=== PATIENT | female | born 1980 | race Caucasian/White ===

== ENCOUNTER 2016-11-06 10:36 | Emergency (ER) | payer OTHER ==
[~2016-11-06] VITALS: Ht 160 cm; Wt 76.7 kg
[2016-11-06 10:43] VITALS: TEMP 36.8; Ht 160 cm; Wt 76.7 kg
[2016-11-06] MEDS ORDERED: PRLSR20 PO (10:56)
[2016-11-06] MEDS ORDERED: ALUMINUM/MAGNESIUM SUSP 30 ML UDC PO STA (11:32)
[2016-11-06] MEDS ORDERED: OPTIRAY 320 IV PRN (11:45)
[2016-11-06 11:50] LABS: BASO % 0.2 %; BASO ABS # 0.01 K/uL (0-0.2); COMPLETE YES; EOS % 1.1 %; HEMATOCRIT 42.4 % (37-47); IG% 0.2 %; LYMPH % 23.9 %; LYMPH ABS # 1.28 K/uL (1.2-3.4); MEAN CELL VOLUME 91.8 fL (80-100); MEAN CORPUSCULAR HEMOGLOBIN 31.6 pg (25-34); MEAN CORPUSCULAR HGB CONC 34.4 g/dl (32-36); MEAN PLATELET VOLUME 11.5 fL (7.4-10.4); MONO % 6.5 %; NEUT % 68.1 %; PLATELET COUNT 194 K/uL (130-400); RED BLOOD COUNT 4.62 M/uL (4.2-5.4); WHITE BLOOD COUNT 5.36 K/uL (4.8-10.8)
[2016-11-06 11:52] LABS: URINE APPEARANCE CLEAR (CLEAR); URINE BILIRUBIN NEG (NEG); URINE COLOR YELLOW; URINE NITRITE NEG (NEG); URINE SPECIFIC GRAVITY 1.009 (1.000-1.030); UROBILINOGEN NEG (NEG)
[2016-11-06 11:56] LABS: MANUAL MICROSCOPIC REQUIRED? NO; REVIEW REQ? NO
[2016-11-06 11:58] LABS: INR 1.1 (0.9-1.1); PROTHROMBIN TIME (PATIENT) 11.4 SECONDS (9.0-12.0)
--- NOTE | 2016-11-06 12:11 | DIAGNOSTIC IMAGING REPORT ---
PA CHEST WITH ABDOMINAL SERIES CLINICAL HISTORY: Generalized abdominal pain. Dizziness. Dyspnea. FINDINGS: A PA chest radiograph is obtained. No prior studies are available for comparison at the time of dictation. The cardiomediastinal silhouette is unremarkable. There are low lung volumes with mild bibasilar atelectasis. The lungs and pleural spaces are otherwise clear. No pneumothorax is seen. The bony thorax is grossly intact. Supine and erect abdominal radiographs are obtained. No prior studies are available for comparison at the time of dictation. Cholecystectomy clips are seen in the right upper quadrant. There is a nonobstructed abdominal bowel gas pattern. Mild colonic fecal retention is observed. No evidence of intraperitoneal free air is seen. There are no abnormal abdominal calcifications. The lumbosacral spine and bony pelvis appear intact. IMPRESSION: 1. No active disease in the chest. 2. Unremarkable abdominal radiographs. Electronically signed by: Cale Peres M.D. 11/06/2016 12:09 PM Dictated Date/Time: 11/06/2016 12:08 PM
[2016-11-06 12:13] LABS: ALT/SGPT 42 U/L (12-78); BLOOD UREA NITROGEN 4 mg/dl (7-18); BUN/CREATININE RATIO 4.9 (10-20); CALCIUM 9.4 mg/dl (8.5-10.1); CARBON DIOXIDE 28 mmol/L (21-32); CHLORIDE 109 mmol/L (98-107); CREATININE 0.74 mg/dl (0.60-1.20); GLUCOSE 84 mg/dl (70-99); POTASSIUM 3.1 mmol/L (3.5-5.1); SODIUM 143 mmol/L (136-145)
[2016-11-06 12:18] LABS: ALKALINE PHOSPHATASE 71 U/L (45-117); AST/SGOT 24 U/L (15-37); PREG INTERNAL NEGATIVE QC NEG CLEAR BACKGROUND; PREG INTERNAL POSITIVE QC POS CONTROL LINE
--- NOTE | 2016-11-06 13:11 | DIAGNOSTIC IMAGING REPORT ---
CT neck with intravenous contrast HISTORY: pain in the back of throat TECHNIQUE: Multiaxial CT images of the neck were performed following the use of intravenous contrast. COMPARISON STUDY: None. FINDINGS: The visualized brain parenchyma and orbits are unremarkable. The major mucosal airway surfaces are intact. Mild mucosal thickening within the floor of the left max a sinus. No fluid levels within the paranasal sinuses. Prevertebral soft tissues and the epiglottis are normal in thickness. No fractures within the visualized osseous structures. A 3 mm hypodense nodule within the left thyroid lobe. No cervical lymphadenopathy. No masses or abscess identified within the neck. The major salivary glands are symmetric. IMPRESSION: No significant abnormality within the neck. Electronically signed by: Juarez Lopez M.D. 11/06/2016 1:10 PM Dictated Date/Time: 11/06/2016 1:05 PM
[2016-11-06] MEDS ORDERED: RANI150T3 PO (13:44)
[2016-11-06] MEDS ORDERED: OMEP20CA59 PO (13:44)
[2016-11-06 13:54] VITALS: BP 119/78; PULSE 65; O2SAT 98
--- NOTE | 2016-11-06 17:16 | EMERGENCY ROOM VISIT NOTE ---
History Report prepared by Beto: Sandra Kamara Under the Supervision of: Dr. Terry Latham D.O. First contact with patient: 11:23 Chief Complaint: OTHER COMPLAINT Stated Complaint: LUMP IN THROAT AT TIMES, SOB, DIZZY History of Present Illness The patient is a 35 year old female who presents to the Emergency Room with complaints of a worsening lump in her throat that started about a month ago. The patient reports that she was sick with ingestion at the beginning of the month and thought that the lump was going to pass on its own. She reports that the lump feels towards the top and feels like it is hard to swallow. She reports that sometimes that she can't seem to catch her breath. The patient states that she came to the ED because she was struggling with it at work. She notes that she has not been eating a lot lately and feels like air is trapped in her stomach. She states that sometimes this gets painful. The patient denies any back pain. Source of History: patient Onset: a month ago Position: throat Quality: other (uncomfortable) Timing: worsening Associated Symptoms: + SOB, No back pain Note: The patient complains that the trapped air in her stomach can be painful at times. Review of Systems See HPI for pertinent positives & negatives. A total of 10 systems reviewed and were otherwise negative. Past Medical & Surgical Surgical Problems: (1) S/P cholecystectomy Family History No pertinent family history Social History Smoking Status: Never Smoker Marital Status: Housing Status: lives with significant other Occupation Status: employed Current/Historical Medications Scheduled Omeprazole (Prilosec), 20 MG PO HS Omeprazole (Prilosec), 20 MG PO BID Ranitidine Hcl (Zantac), 150 MG PO BID Allergies Coded Allergies: Amitriptyline (Unverified Allergy, Unknown, neurologic symptoms, 11/06/16) Physical Exam Vital Signs Date Time Temp Pulse Resp B/P (MAP) Pulse Ox O2 Delivery O2 Flow Rate FiO2 11/06/16 13:54 65 16 119/78 98 11/06/16 12:05 73 16 129/85 98 Room Air 11/06/16 11:00 75 11/06/16 10:43 36.8 77 18 159/105 98 Room Air Physical Exam GENERAL: Patient is awake, alert, and in no acute distress. Patient is resting comfortably and showing no signs of anxiety EYES: The conjunctivae are clear. The pupils are round and reactive. EARS, NOSE, MOUTH AND THROAT: The nose is without any evidence of any deformity. Mucous membranes are moist tongue is midline NECK: The neck is nontender and supple. RESPIRATORY: Normal respiratory effort is noted there is no evidence of wheezing rhonchi or rales CARDIOVASCULAR: Regular rate and rhythm noted there no murmurs rubs or gallops normal S1 normal S2 GASTROINTESTINAL: The abdomen is soft. Bowel sounds are present in all quadrants. Abdomen is nontender MUSCULOSKELETAL/EXTREMITIES: There is no evidence of gross deformity full range of motion is noted in the hips and shoulders SKIN: There is no obvious evidence of any rash. There are no petechiae, pallor or cyanosis noted. NEUROLOGIC: Patient is awake alert and oriented x3 strength is symmetric patellar reflexes are 2+ bilaterally Medical Decision & Procedures ER Provider Diagnostic Interpretation: Radiology results as stated below per my review and radiologist interpretation: CT neck with intravenous contrast HISTORY: pain in the back of throat TECHNIQUE: Multiaxial CT images of the neck were performed following the use of intravenous contrast. COMPARISON STUDY: None. FINDINGS: The visualized brain parenchyma and orbits are unremarkable. The major mucosal airway surfaces are intact. Mild mucosal thickening within the floor of the left max a sinus. No fluid levels within the paranasal sinuses. Prevertebral soft tissues and the epiglottis are normal in thickness. No fractures within the visualized osseous structures. A 3 mm hypodense nodule within the left thyroid lobe. No cervical lymphadenopathy. No masses or abscess identified within the neck. The major salivary glands are symmetric. IMPRESSION: No significant abnormality within the neck. Electronically signed by: Juarez Lopez M.D. 11/06/2016 1:10 PM Dictated Date/Time: 11/06/2016 1:05 PM PA CHEST WITH ABDOMINAL SERIES CLINICAL HISTORY: Generalized abdominal pain. Dizziness. Dyspnea. FINDINGS: A PA chest radiograph is obtained. No prior studies are available for comparison at the time of dictation. The cardiomediastinal silhouette is unremarkable. There are low lung volumes with mild bibasilar atelectasis. The lungs and pleural spaces are otherwise clear. No pneumothorax is seen. The bony thorax is grossly intact. Supine and erect abdominal radiographs are obtained. No prior studies are available for comparison at the time of dictation. Cholecystectomy clips are seen in the right upper quadrant. There is a nonobstructed abdominal bowel gas pattern. Mild colonic fecal retention is observed. No evidence of intraperitoneal free air is seen. There are no abnormal abdominal calcifications. The lumbosacral spine and bony pelvis appear intact. IMPRESSION: 1. No active disease in the chest. 2. Unremarkable abdominal radiographs. Electronically signed by: Cale Peres M.D. 11/06/2016 12:09 PM Dictated Date/Time: 11/06/2016 12:08 PM Laboratory Results 11/06/16 11:40 Red Blood Count 4.62, Mean Corpuscular Volume 91.8, Mean Corpuscular Hemoglobin 31.6, Mean Corpuscular Hemoglobin Concent 34.4, Mean Platelet Volume 11.5, Neutrophils (%) (Auto) 68.1, Lymphocytes (%) (Auto) 23.9, Monocytes (%) (Auto) 6.5, Eosinophils (%) (Auto) 1.1, Basophils (%) (Auto) 0.2, Neutrophils # (Auto) 3.65, Lymphocytes # (Auto) 1.28, Monocytes # (Auto) 0.35, Eosinophils # (Auto) 0.06, Basophils # (Auto) 0.01 11/06/16 11:40 Test 11/06/16 11:25 11/06/16 11:40 Urine Color YELLOW Urine Appearance CLEAR (CLEAR) Urine pH 8.0 (4.5-7.5) Urine Specific [place] 1.009 (1.000-1.030) Urine Protein NEG (NEG) Urine Glucose (UA) NEG (NEG) Urine Ketones NEG (NEG) Urine Occult Blood NEG (NEG) Urine Nitrite NEG (NEG) Urine Bilirubin NEG (NEG) Urine Urobilinogen NEG (NEG) Urine Leukocyte Esterase NEG (NEG) White Blood Count 5.36 K/uL (4.8-10.8) Red Blood Count 4.62 M/uL (4.2-5.4) Hemoglobin 14.6 g/dL (12.0-16.0) Hematocrit 42.4 % (37-47) Mean Corpuscular Volume 91.8 fL (80-100) Mean Corpuscular Hemoglobin 31.6 pg (25-34) Mean Corpuscular Hemoglobin Concent 34.4 g/dl (32-36) Platelet Count 194 K/uL (130-400) Mean Platelet Volume 11.5 fL (7.4-10.4) Neutrophils (%) (Auto) 68.1 % Lymphocytes (%) (Auto) 23.9 % Monocytes (%) (Auto) 6.5 % Eosinophils (%) (Auto) 1.1 % Basophils (%) (Auto) 0.2 % Neutrophils # (Auto) 3.65 K/uL (1.4-6.5) Lymphocytes # (Auto) 1.28 K/uL (1.2-3.4) Monocytes # (Auto) 0.35 K/uL (0.11-0.59) Eosinophils # (Auto) 0.06 K/uL (0-0.5) Basophils # (Auto) 0.01 K/uL (0-0.2) RDW Standard Deviation 43.5 fL (36.4-46.3) RDW Coefficient of Variation 13.0 % (11.5-14.5) Immature Granulocyte % (Auto) 0.2 % Immature Granulocyte # (Auto) 0.01 K/uL (0.00-0.02) Prothrombin Time 11.4 SECONDS (9.0-12.0) Prothromb Time International Ratio 1.1 (0.9-1.1) Activated Partial Thromboplast Time 25.9 SECONDS (21.0-31.0) Partial Thromboplastin Ratio 1.0 Anion Gap 6.0 mmol/L (3-11) Est Creatinine Clear Calc Drug Dose 106.0 ml/min Estimated GFR () 123.4 Estimated GFR (Non- 106.4 BUN/Creatinine Ratio 4.9 (10-20) Calcium Level 9.4 mg/dl (8.5-10.1) Total Bilirubin 0.4 mg/dl (0.2-1) Direct Bilirubin 0.1 mg/dl (0-0.2) Aspartate Amino Transf (AST/SGOT) 24 U/L (15-37) Alanine Aminotransferase (ALT/SGPT) 42 U/L (12-78) Alkaline Phosphatase 71 U/L (45-117) Troponin I < 0.015 ng/ml (0-0.045) Total Protein 7.7 gm/dl (6.4-8.2) Albumin 4.0 gm/dl (3.4-5.0) Lipase 147 U/L (73-393) Human Chorionic Gonadotropin, Qual NEG (NEG) Laboratory results per my review. Medications Administered Medications (Trade) Dose Ordered Sig/Shruthi Route Start Time Stop Time Status Last Admin Dose Admin Al Hydroxide/Mg Hydroxide (Maalox Susp) 30 ml NOW STAT PO 11/06/16 11:32 11/06/16 11:34 DC 11/06/16 11:45 30 ML ECG Indication: SOB/dyspnea Rate (beats per minute): 67 Rhythm: normal sinus Findings: no ectopy, other (no ST segment abnormalities) Comparison ECG Date: no prior available ED Course 1126: The patient was evaluated in room A10. A complete history and physical examination were performed. 1132: Ordered Maalox Susp 30 ml PO. 1354: Upon reevaluation, the patient is resting comfortably. I discussed the results and treatment plan with her. The patient verbalized agreement of the treatment plan. The patient was discharged home. Medical Decision Medication Reconciliation: I attest that I have personally reviewed the patient' s current medications list. Blood pressure screening: Patient was found to have normal blood pressure on screening and does not require follow-up.. Differential diagnosis: Etiologies such as appendicitis, diverticulitis, PUD, biliary pathology, UTI, pancreatitis, obstruction, mesenteric ischemia, aortic pathology, infections, inflammatory bowel disease, renal colic, as well as others were entertained. The patient is a 35-year-old female who presented to the emergency department for an evaluation of dysphagia and sore throat and epigastric pain. The patient states she's had symptoms have been ongoing for quite some time but is never had a true workup. She was seen by her family doctor and did not have any specific testing. She states that she started herself on a proton pump inhibitors without relief. She also notices a discomfort especially upon swallowing in her upper neck. She had no swelling or abnormality noted on physical exam. I discussed the patient's laboratory and radiographic studies with her. At this time I feel this could be related to GERD or reflux. She was encouraged to continue all medications as prescribed and follow-up with her primary care physician to discuss the possibility that she may require a follow- up appointment with either gastroenterology or ENT. Otherwise she was encouraged to return to the emergency department immediately if symptoms change worsen or the need arises. Impression Primary Impression: Epigastric pain Additional Impressions: Gastritis Sorethroat Scribe Attestation The scribe's documentation has been prepared under my direction and personally reviewed by me in its entirety. I confirm that the note above accurately reflects all work, treatment, procedures, and medical decision making performed by me. Departure Information Dispostion Home / Self-Care Prescriptions Ranitidine Hcl (ZANTAC) 150 Mg Tab 150 MG PO BID, #60 TAB Prov: Terry Latham, DO 11/06/16 Omeprazole (Prilosec) 20 Mg Capcr 20 MG PO BID, #60 CAP Prov: Terry Latham, DO 11/06/16 Referrals No Doctor, Assigned (PCP) Forms HOME CARE DOCUMENTATION FORM, IMPORTANT VISIT INFORMATION, WORK / SCHOOL INSTRUCTIONS Patient Instructions My [facility] Additional Instructions Call your family to schedule a follow-up appointment. Rest and avoid any strenuous activity. Continue using Maalox or Mylanta as directed for symptomatically relief. Continue all other medications as prescribed. Discuss with your family doctor the possibility that you may require a referral to a engineering technologist or possibly an ear nose and throat physician to further evaluate the cause your symptoms. Problem Qualifiers Additional Impressions: Gastritis Gastritis type: unspecified gastritis Chronicity: acute Gastritis bleeding : without bleeding Qualified Codes: K29.00 - Acute gastritis without bleeding
== END 2016-11-06 13:54 | disposition home or self-care (01) ==
LOC: C.EDB 10:39 → C.EDA 13:54
DX: R10.13 Epigastric pain (principal); K29.00 Acute gastritis without bleeding; J02.9 Acute pharyngitis, unspecified

== ENCOUNTER → 2016-12-22 | Outpatient (CLI) | payer BC, OTHER ==
[~2016-12-22] MED LIST: OMEP20CA59 PO; PRLSR20 PO; RANI150T3 PO
--- NOTE | 2016-12-22 13:36 | SWALLOWING EVALUATION ---
HISTORY: This 36 year-old woman, from home, was referred for a VFSS at [facility] secondary to complaints of feeling that something is stuck in her throat when she swallows. She states that no food in particular given him difficulty however the "lump" will come and go. She reports that this has been an issue for over a year since the removal of her gull bladder. Currently the patient's diet level is regular with thins. PROCEDURE: The patient was seen in the Radiology Department of [facility] for the VFSS. Cursory examination of the oral cavity revealed adequate dentition. Movement of the articulators was WNL. The patient was standing and was viewed in both the Anterior-Posterior (A-P) and Lateral planes. Volitional phonation exercises completed in the A-P plane revealed bilateral vocal fold movement and vocal intensity within functional limits. In the lateral plane, the patient was given the following barium-infused boluses: 1 tsp thin barium with oral hold 1x, self presented single cup swallow-thin barium 1x, self presented serial cup swallow 1x. 1 tsp nectar thick barium with oral hold 1x, self presented single cup swallow- nectar thick barium 1x, self presented serial cup swallows 1x. 1 tsp barium pudding-self presented 1x. Cracker with barium paste 1x. In the A-P view, pt was given 1 tsp barium pudding with esophageal scan. RESULTS: Oral Phase: Pt. had no labial escape of any food or liquid items presented. Pt. demonstrated a cohesive bolus between tongue and palatal seal. Timely and efficient chewing and mashing was observed with all consistencies as well as brisk tongue motion and complete oral clearance. Initiation of pharyngeal swallow began with bolus head at posterior angle of hyoid excursion. Overall WFL for oral phase of swallow. Pharyngeal Phase: Soft Palate Elevation was complete for all boluses. Laryngeal elevation was WFL demonstrating complete movement of thyroid cartilage with complete approximation of arytenoids to epiglottic base. Complete Anterior Hyoid excursion was observed as well as complete epiglottic inversion. Laryngeal Vestibular closure was complete and no air or barium noted in laryngeal vestibule. Tongue base retraction was noted with all consistencies and tongue base made effective contact with posterior pharyngeal wall throughout study. No pharyngeal residue was observed resulting in complete pharyngeal clearance of all tested items. Esophageal Phase: Opening and closing of the UES was timely and efficient. [employer] noted mild retrograde motion upon esophageal scan which would be contributing to her complaints as noted above. SUMMARY/RECOMMENDATIONS: Overall pt. presented as WFL. Results of this study indicate no oral or pharyngeal dysphagia. Recommending continuation of regular "slippery" diet with thin liquids. All results and recommendations were discussed with the pt. at length and written material was provided. Thank you for referral of this patient. Please contact me at if any additional information is needed.
--- NOTE | 2016-12-22 14:26 | DIAGNOSTIC IMAGING REPORT ---
VIDEO SWALLOW CLINICAL HISTORY: 36 years-old Female presenting with globus sensation. TECHNIQUE: Video fluoroscopic evaluation of swallowing was performed in the AP and lateral projections in conjunction with speech pathology. The patient was administered various textures, including nectar-thick and thin liquid barium, a barium coated wafer, and barium pudding. COMPARISON: CT from 11/06/2016. FINDINGS: There is normal hyoid excursion and epiglottic deflection. No significant penetration or aspiration identified. Swallowing function is within normal limits. Intraesophageal reflux noted. Fluoroscopy dosage (mGy): Not available. Fluoroscopy time: 1.3 minutes. Number of fluoroscopic spot images: 0. IMPRESSION: 1. No aspiration identified. 2. Please see the speech pathologist report for detailed findings and recommendations. Electronically signed by: Scooter Perez M.D. 12/22/2016 12:05 PM Dictated Date/Time: 12/22/2016 12:04 PM
== END | disposition home or self-care (01) ==
LOC: C.RAD 11:01
PROVIDERS: ATTEND Nurse Practitioner
DX: F45.8 Other somatoform disorders (principal)